=== PATIENT | female | born 1940 | race Hispanic/Latino ===

== ENCOUNTER 2017-01-01 00:52 | Inpatient (IN) | payer MEDICARE, MEDICAID ==
--- NOTE | 2017-01-01 00:58 | C.PDOC ---
History Of Present Illness 76 year old female presents to the ED with complaints of increased SOB and a nonproductive cough in the past 24 hours. Patient states she has continuous O2 at home and was given a nebulizer treatment with minimal improvement. She is speaking in complete sentences and denies chest pain, palpitations, fever, chills, or any other complaints at this time. Time Seen by Provider: 01/01/17 00:57 History Per: Patient History/Exam Limitations: no limitations Onset/Duration Of Symptoms: Hrs Current Symptoms Are (Timing): Still Present Initiating Event: Other Quality: Dull Exacerbating Factor(s): Coughing Current Respiratory Medications: See Home Med List, Albuterol Severity: Severe Pain Scale Rating Of: 7 Associated Symptoms: denies: Fever, Chills, Chest Pain, Productive Cough Reports Recently: Seen In ED, Treated By A Physician Recent travel outside of the [place]: No Additional History Per: Patient Past Medical History Reviewed: Historical Data, Nursing Documentation, Vital Signs Vital Signs: Last Vital Signs Temp 98.8 F 01/01/17 02:20 Pulse 96 H 01/01/17 02:32 Resp 27 H 01/01/17 02:32 BP 143/50 L 01/01/17 02:32 Pulse Ox 95 01/01/17 02:32 - Medical History PMH: Anxiety, Arthritis, COPD (EMPHYSEMA, O2 DEPENDENT), Emphysema, HTN, Hypercholesterolemia Surgical History: Cholecystectomy - [facility] Procedures ASSISTANCE WITH RESPIRATORY VENTILATION, <24 HRS, CPAP (08/14/15) FLUOROSCOPY OF LEFT HEART USING LOW OSMOLAR CONTRAST (12/17/15) FLUOROSCOPY OF MULT COR ART USING L OSM CONTRAST (12/17/15) MEASURE OF CARDIAC SAMPL & PRESSURE, L HEART, PERC APPROACH (12/17/15) Family History: States: Unknown Family Hx - Social History Hx Tobacco Use: No (Quit 3 years ago) Hx Alcohol Use: No Hx Substance Use: No - Immunization History Hx Tetanus Toxoid Vaccination: No Hx Influenza Vaccination: No Hx Pneumococcal Vaccination: No Review Of Systems Constitutional: Negative for: Fever, Chills, Weakness ENT: Negative for: Throat Pain Cardiovascular: Negative for: Chest Pain, Palpitations Respiratory: Positive for: Cough, Shortness of Breath. Negative for: Sputum Gastrointestinal: Negative for: Vomiting, Abdominal Pain Genitourinary: Negative for: Dysuria Musculoskeletal: Negative for: Neck Pain, Back Pain Skin: Negative for: Rash, Lesions, Jaundice Neurological: Negative for: Weakness, Numbness Psych: Negative for: Anxiety Physical Exam - Physical Exam Appears: In Acute Distress Skin: Warm, Dry Head: Atraumatic Eye(s): bilateral: Normal Inspection Oral Mucosa: Moist Neck: Supple Chest: Symmetrical, No Deformity Cardiovascular: Rhythm Regular Respiratory: No Accessory Muscle Use, No Rales, Rhonchi (+Scattered rhonchi), Wheezing (+Wheezing at the bases) Gastrointestinal/Abdominal: Soft, No Tenderness, No Distention, No Guarding, No Rebound Back: Normal Inspection Extremity: Normal ROM Extremity: Bilateral: Atraumatic, Normal Color And Temperature Neurological/Psych: Oriented x3, Normal Speech, Normal Cognition Gait: Unable To Assess ED Course And Treatment - Laboratory Results Result Diagrams: 01/01/17 01:27 01/01/17 01:27 ECG: Interpreted By Me, Viewed By Me ECG Rhythm: Sinus Rhythm, Nonspecific Changes (inf ischemic changes , uncganged from 12/17/15) O2 Sat by Pulse Oximetry: 94 Pulse Ox Interpretation: Normal - Radiology CXR: Interpreted by Me, Viewed By Me CXR Interpretation: Yes: COPD, Other (unchanged from 12/20/15). No: Infiltrates , Fracture, Pnemothorax Progress Note: CXR, EKG, Blood work, and Urinalysis ordered and reviewed. Critical Care Time - Critical Care Note Total Time (in mins): 30 Documented critical care: time excludes all time spent performing seperately billable procedures. Disposition Discussed With : Fernando Holly Comment: accepted the pt on his service and took over the care at 3 am Doctor Will See Patient In The: ED Counseled Patient/Family Regarding: Studies Performed, Diagnosis - Disposition Disposition: HOSPITALIZED Disposition Time: 00:58 Condition: FAIR - POA Present On Arrival: Poor Glycemic Control - Clinical Impression Clinical Impression: Chr obstructive pulmonary disease w/ acute lower respiratory infxn, Dyspnea, COPD exacerbation - Scribe Statement The provider has reviewed the documentation as recorded by the Scribe Kacie Manuel. Provider Attestation: All medical record entries made by the Scribe were at my direction and personally dictated by me. I have reviewed the chart and agree that the record accurately reflects my personal performance of the history, physical exam, medical decision making, and the department course for this patient. I have also personally directed, reviewed, and agree with the discharge instructions and disposition. Decision To Admit - Pt Status Changed To: Hospital Disposition Of: Inpatient - Admit Certification Admit to Inpatient:: After my assessment, the patient will require hospitalization for at least two midnights. This is because of the severity of symptoms shown, intensity of services needed, and/or the medical risk in this patient being treated as an outpatient. - InPatient: Physician Admission Certification: I certify that this patient requires 2 or more midnights of care for the following reason:: After my assessment, the patient will require hospitalization for at least two midnights. This is because of the severity of symptoms shown, intensity of services needed, and/or the medical risk in this patient being treated as an outpatient. - . Bed Request Type: Regular Admitting Physician: Fernando Holly Patient Diagnosis: Chr obstructive pulmonary disease w/ acute lower respiratory infxn, Dyspnea, COPD exacerbation
[2017-01-01] MEDS: Albuterol-Ipratrop 3 mg / 0.5 (3 ml) UD IH SCH ×3 (01:15→01:43)
[2017-01-01 01:29] LABS: BASO % 0.2 % (0.0-2.0); EOS # 0.2 K/uL (0.0-0.7); EOS % 0.7 % (0.0-4.0); HEMATOCRIT 31.8 % (34.0-47.0); LYMPH # 2.6 K/uL (1.0-4.3); LYMPH % 11.3 % (20.0-40.0); MEAN CELL VOLUME 85.7 fL (81.0-99.0); MEAN CORPUSCULAR HEMOGLOBIN 27.5 pg (27.0-31.0); MEAN CORPUSCULAR HGB CONC 32.1 g/dL (33.0-37.0); MEAN PLATELET VOLUME 9.3 fL (7.2-11.7); MONO % 8.8 % (0.0-10.0); NRBC % 0.1 % (0.0-2.0); RED CELL DISTRIBUTION WIDTH 14.2 % (11.5-14.5); WHITE BLOOD COUNT 22.6 K/uL (4.8-10.8)
[2017-01-01] MEDS ORDERED: Albuterol-Ipratrop 3 mg / 0.5 (3 ml) UD ONE (01:29)
[2017-01-01 01:44] LABS: ALB/GLOB RATIO 1.4 (1.0-2.1); ALKALINE PHOSPHATASE 98 U/L (38-126); ALT/SGPT 16 U/L (9-52); AST/SGOT 22 U/L (14-36); BILIRUBIN,TOTAL 0.6 mg/dL (0.2-1.3); BLOOD UREA NITROGEN 18 mg/dL (7-17); CALCIUM 9.5 mg/dl (8.6-10.4); CARBON DIOXIDE 31 mmol/L (22-30); CHLORIDE 91 mmol/L (98-107); GFR AFRICAN-AMERICAN > 60; GLUCOSE,RANDOM 177 mg/dL (65-105); MAGNESIUM 1.7 mg/dL (1.6-2.3); POTASSIUM 3.9 mmol/L (3.6-5.2); SODIUM 137 mmol/L (132-148); TOTAL PROTEIN 7.5 g/dL (6.3-8.3)
--- NOTE | 2017-01-01 04:26 | CP.PCM.HP ---
Addendum entered and electronically signed by Jennifer Gomes DO 01/01/17 06: 26: (8) Anemia Assessment and Plan: Patient with Hgb 10.2 on admission f/u Iron studies f/u CBC repeat today Patient with EGD and colonoscopy done last year for anemia. Obtain results from PMD. Status: Acute Original Note: <Jennifer Gomes - Last Filed: 01/01/17 06:21> History of Present Illness - History of Present Illness History of Present Illness: CC: "shortness of breath" 76 year old female with PMHx of COPD on O2 at home, CAD, DM, HTN, arthritis, anxiety presents with 1-2 day history of worsening dyspnea. She uses 3-4L of O2 via NC around the clock. Patient also reports new onset cough that is dry and non productive. She recently re-started home neb treatments and thinks this is what started all her issues. She denies fevers, chills. She has not chest pain now, but admits she gets chest pain intermittently for a "long time". Chest pain is intermittent, left sides, "burning" and lasts only a for a few seconds at a time. She attributes the chest pain to food intake, although she also notices when she is "upset". She was seen by a aix architect during admission to [facility] ([facility] last year where she had elevated troponins and had cath done. Patient reports she was told "everything was okay", however as per cath report, patient has double vessel disease and was treated conservatively. Patient admits she never followed up with cardio as outpatient. She denies fevers, chills, nausea, vomiting, diarrhea, constipation, dysuria, abdominal pain, numbness, tingling, myalgias. Admits to inability to lay flat. Denies sick contacts, recent hospital stay or recent travel. Patient was made to come in for evaluation after she placed call to her PMD. PMHx: COPD on O2 at home, CAD, HTN, arthritis, anxiety, DM. Medications: she does not remember them. Allergies: NKDA Social Hx: quit smoking 5 years ago after being heavy smoker for 40-50 years. She reports alcohol abuse, but quit many years ago. Denies drug use. Lives at home with daughter who is her stucco laborer. Family Hx: denies family history of any illness. PMD: Dr. Young Present on Admission - Present on Admission Any Indicators Present on Admission: No Review of Systems - Constitutional Constitutional: absent: Chills, Fatigue, Fever - EENT Eyes: absent: Blurred Vision, Change in Vision Ears: absent: Dizziness - Cardiovascular Cardiovascular: Chest Pain with Activity. absent: Chest Pain at Rest - Respiratory Respiratory: Cough, Dyspnea, Wheezing. absent: Chest Congestion - Gastrointestinal Gastrointestinal: Dyspepsia. absent: Abdominal Pain, Constipation, Diarrhea, Nausea, Vomiting - Genitourinary Genitourinary: absent: Difficulty Urinating, Dysuria - Musculoskeletal Musculoskeletal: absent: Back Pain, Myalgias, Numbness, Tingling - Integumentary Integumentary: absent: Rash, Wounds - Neurological Neurological: Headaches. absent: Dizziness, Numbness, Syncope, Tingling, Weakness - Psychiatric Psychiatric: Anxiety. absent: Depression - Endocrine Endocrine: absent: Fatigue, Palpitations Past Patient History - Infectious Disease Hx of Infectious Diseases: None - Past Medical History & Family History Past Medical History?: Yes - Past Social History Smoking Status: Former Smoker - CARDIAC Hx Hypercholesterolemia: Yes Hx Hypertension: Yes - PULMONARY Hx Chronic Obstructive Pulmonary Disease (COPD): Yes (EMPHYSEMA, O2 DEPENDENT) Hx Emphysema: Yes - NEUROLOGICAL Hx Neurological Disorder: No - HEENT Hx HEENT Problems: No - RENAL Hx Chronic Kidney Disease: No - ENDOCRINE/METABOLIC Hx Diabetes Mellitus Type 2: No - HEMATOLOGICAL/ONCOLOGICAL Hx Blood Disorders: No - INTEGUMENTARY Hx Dermatological Problems: No - MUSCULOSKELETAL/RHEUMATOLOGICAL Hx Arthritis: Yes - GASTROINTESTINAL Hx Gastrointestinal Disorders: No - GENITOURINARY/GYNECOLOGICAL Hx Genitourinary Disorders: No - PSYCHIATRIC Hx Anxiety: Yes Hx Substance Use: No - SURGICAL HISTORY Hx Cholecystectomy: Yes - ANESTHESIA Hx Anesthesia: Yes Hx Anesthesia Reactions: No Hx Malignant Hyperthermia: No Meds Allergies/Adverse Reactions: Allergies Allergy/AdvReac Type Severity Reaction Status Date / Time No Known Allergies Allergy Verified 01/01/17 01:01 Physical Exam - Constitutional Appears: No Acute Distress - Head Exam Head Exam: NORMAL INSPECTION, NORMOCEPHALIC - Eye Exam Eye Exam: EOMI, Normal appearance - ENT Exam ENT Exam: Mucous Membranes Moist - Neck Exam Neck exam: Positive for: Full Rom, Normal Inspection - Respiratory Exam Respiratory Exam: Decreased Breath Sounds, Wheezes (mininal). absent: Rales, Rhonchi - Cardiovascular Exam Cardiovascular Exam: REGULAR RHYTHM, +S1, +S2. absent: Systolic Murmur - GI/Abdominal Exam GI & Abdominal Exam: Normal Bowel Sounds, Soft. absent: Distended, Tenderness - Extremities Exam Extremities exam: Positive for: full ROM, normal inspection. Negative for: pedal edema - Back Exam Back exam: NORMAL INSPECTION - Neurological Exam Neurological exam: Alert, Oriented x3 - Psychiatric Exam Psychiatric exam: Normal Affect, Normal Mood - Skin Skin Exam: Dry, Normal Color, Pallor, Warm Results - Vital Signs Recent Vital Signs: Last Vital Signs Temp 98.8 F 01/01/17 04:06 Pulse 98 H 01/01/17 04:06 Resp 28 H 01/01/17 04:06 BP 140/55 L 01/01/17 04:06 Pulse Ox 96 01/01/17 04:06 - Labs Result Diagrams: 01/01/17 01:27 01/01/17 01:27 Assessment & Plan (1) COPD exacerbation Assessment and Plan: Patient with improved SOB after Solumedrol 125 mg IVP dose given in the ED and Duoneb treatments. Patient on 3-4L of O2 at home continuously. Duoneb Q6H RICHARD Pulmicort respules 0.5 Q12H Solumedrol daily O2 3L NC Status: Chronic (2) Cough Assessment and Plan: f/u official read of CXR Doxy IVPB Q12H Status: Acute (3) Leukocytosis Assessment and Plan: WBC 22.6 f/u CXR f/u blood cultures f/u UA and C&S Status: Acute (4) CAD (coronary artery disease) Assessment and Plan: Patient with hx of double vessel disease as per cath 2016 with 90% stenosis of RCA and LAD. Troponin negative on admission EKG showed NSR 100 bpm, with unspecific ST changes. f/u CRISTIAN Q6H X2 f/u EKG Q6H X2 Plavix 75 mg PO daily Aspirin 81 mg PO daily Norvasc 10 mg PO daily ECHO with normal EF in 2016. f/u repeat ECHO Status: Acute (5) Diabetes mellitus Assessment and Plan: ISS Restart home med Januvia PO. ACCU CHECKS ACHS f/u Hgb A1C Status: Chronic (6) HTN (hypertension) Assessment and Plan: Norvasc 10 mg PO daily Lasix 20 mg PO daily Status: Chronic Priority: Medium (7) Prophylactic measure Assessment and Plan: Pepcid 20 mg PO BID Heparin SC Q8H SCDs Status: Acute <Fernando Holly - Last Filed: 01/11/17 22:18> Results - Vital Signs Recent Vital Signs: Last Vital Signs Temp 98 F 01/03/17 15:56 Pulse 91 H 01/03/17 15:56 Resp 20 01/03/17 15:56 BP 151/72 H 01/03/17 15:56 Pulse Ox 97 01/03/17 15:56 - Labs Result Diagrams: 01/02/17 07:12 01/02/17 07:12 Attending/Attestation - Attestation I have personally seen and examined this patient.: Yes I have fully participated in the care of the patient.: Yes I have reviewed all pertinent clinical information: Yes
[2017-01-01 06:55] LABS: BASO # 0.1 K/uL (0.0-0.2); BASO % 0.2 % (0.0-2.0); HEMATOCRIT 33.8 % (34.0-47.0); LYMPH # 1.4 K/uL (1.0-4.3); LYMPH % 5.7 % (20.0-40.0); MEAN CELL VOLUME 85.7 fL (81.0-99.0); MEAN CORPUSCULAR HEMOGLOBIN 26.8 pg (27.0-31.0); MEAN CORPUSCULAR HGB CONC 31.3 g/dL (33.0-37.0); MEAN PLATELET VOLUME 9.5 fL (7.2-11.7); MONO # 0.4 K/uL (0.0-0.8); MONO % 1.6 % (0.0-10.0); PLATELET COUNT 325 K/uL (130-400); RED CELL DISTRIBUTION WIDTH 14.7 % (11.5-14.5); WHITE BLOOD COUNT 25.3 K/uL (4.8-10.8)
[2017-01-01 07:43] LABS: CHLORIDE 88 mmol/L (98-107)
[2017-01-01 07:44] LABS: POTASSIUM 3.7 mmol/L (3.6-5.2); SODIUM 136 mmol/L (132-148)
[2017-01-01 07:46] LABS: ALB/GLOB RATIO 1.4 (1.0-2.1); ALKALINE PHOSPHATASE 96 U/L (38-126); AST/SGOT 34 U/L (14-36); BILIRUBIN,TOTAL 0.3 mg/dL (0.2-1.3); BLOOD UREA NITROGEN 19 mg/dL (7-17); CARBON DIOXIDE 26 mmol/L (22-30); GFR AFRICAN-AMERICAN > 60; TOTAL PROTEIN 8.2 g/dL (6.3-8.3)
[2017-01-01 07:47] LABS: ALT/SGPT 16 U/L (9-52); CALCIUM 9.7 mg/dl (8.6-10.4); GLUCOSE,RANDOM 228 mg/dL (65-105); MAGNESIUM 1.8 mg/dL (1.6-2.3); PHOSPHOROUS 3.6 mg/dL (2.5-4.5)
[2017-01-01 08:18] LABS: RBC URINE 9 /hpf (0-3); URINE BILIRUBIN NEGATIVE (NEGATIVE); URINE BLOOD 1+ (NEGATIVE); URINE COLOR Yellow (YELLOW); URINE GLUCOSE (UA) NORMAL (Normal); URINE KETONE NEGATIVE (NEGATIVE); URINE LEUKOCYTE ESTERASE NEG Leu/uL (Negative); URINE PROTEIN 2+ mg/dL (NEGATIVE); URINE UROBILINOGEN NORMAL mg/dL (0.2-1.0); WBC URINE 1 /hpf (0-5)
[2017-01-01 08:22] LABS: THYROID STIMULATING HORMONE 0.59 mIU/L (0.46-4.68)
[2017-01-01] MEDS: Albuterol-Ipratrop 3 mg / 0.5 (3 ml) UD INH SCH ×3 (08:30→19:15)
[2017-01-01] MEDS: Budesonide 0.5 mg/2 ml Inhal Susp UD INH SCH ×2 (08:30→19:15)
[2017-01-01 08:42] LABS: NEUTROPHIL 87 % (50-75); REACTIVE LYMPHOCYTES 1 % (0-0); TOTAL CELLS COUNTED 100
[2017-01-01] MEDS: (Novolin R) Insulin Human Regular 100 units/ml vial SC SCH ×4 (09:49→21:12)
[2017-01-01 10:39] LABS: IRON 30 ug/dL (37-170)
--- NOTE | 2017-01-01 11:56 | CP.PCM.CON ---
History of Present Illness - History of Present Illness History of Present Illness: Pt is a 76yo F with a history of COPD, CAD, HtN, DM, arthritis, and anxiety presents to the ED with increased SOB with associated non-productive cough for 24-48 hours prior to admission. Pt uses home O2 at 3-4L for 24hrs/day. The patient expresses a history of chest pain associated with any removal of O2 assistance. Pt also describes a concern about laying flat. Pt was seen and examined today breathing comfortably on NC. Pt complains of continued non-productive cough, congestion, palpations that feel like excitement , inability to breath laying down, some lack of balance, and dry mouth attributed by the pt to O2 use. Patient denies SOB, CP, sore throat, leg pain, lightheadedness, dizziness, nausea, vomiting, abdominal pain, changes in bowl habits including diarrhea and constipation. PMH: COPD, CAD, HtN, DM, arthritis, and anxiety PSH: cholecystectomy, positive troponins with cath Smoking: Quit 5 years ago, significant smoking hx prior Review of Systems - EENT Nose/Mouth/Throat: absent: Sore Throat - Cardiovascular Cardiovascular: absent: Chest Pain, Lightheadedness - Respiratory Respiratory: Cough, Dyspnea, Chest Congestion - Gastrointestinal Gastrointestinal: absent: Abdominal Pain, Change in Bowel Habits, Change in Stool Character, Diarrhea, Loose Stools, Nausea, Vomiting - Musculoskeletal Musculoskeletal: Abnormal Gait (feels off balance occationaly) - Neurological Neurological: absent: Dizziness Past Patient History - Infectious Disease Hx of Infectious Diseases: None - Past Medical History & Family History Past Medical History?: Yes - Past Social History Smoking Status: Former Smoker - CARDIAC Hx Hypercholesterolemia: Yes Hx Hypertension: Yes - PULMONARY Hx Chronic Obstructive Pulmonary Disease (COPD): Yes (EMPHYSEMA, O2 DEPENDENT) Hx Emphysema: Yes - NEUROLOGICAL Hx Neurological Disorder: No - HEENT Hx HEENT Problems: No - RENAL Hx Chronic Kidney Disease: No - ENDOCRINE/METABOLIC Hx Diabetes Mellitus Type 2: No - HEMATOLOGICAL/ONCOLOGICAL Hx Blood Disorders: No - INTEGUMENTARY Hx Dermatological Problems: No - MUSCULOSKELETAL/RHEUMATOLOGICAL Hx Arthritis: Yes - GASTROINTESTINAL Hx Gastrointestinal Disorders: No - GENITOURINARY/GYNECOLOGICAL Hx Genitourinary Disorders: No - PSYCHIATRIC Hx Anxiety: Yes Hx Substance Use: No - SURGICAL HISTORY Hx Cholecystectomy: Yes - ANESTHESIA Hx Anesthesia: Yes Hx Anesthesia Reactions: No Hx Malignant Hyperthermia: No Meds Allergies/Adverse Reactions: Allergies Allergy/AdvReac Type Severity Reaction Status Date / Time No Known Allergies Allergy Verified 01/01/17 01:01 - Medications Medications: Current Medications Albuterol/Ipratropium (Duoneb 3 Mg/0.5 Mg (3 Ml) Ud) 3 ml INH RQ6 [facility] Last Admin: 01/01/17 08:30 Dose: 3 ml Alprazolam (Xanax) 1 mg PO PRN PRN PRN Reason: Anxiety Last Admin: 01/01/17 09:42 Dose: 1 mg Amlodipine Besylate (Norvasc) 10 mg PO DAILY [facility] Last Admin: 01/01/17 09:46 Dose: 10 mg Aspirin (Ecotrin) 81 mg PO DAILY [facility] Last Admin: 01/01/17 09:43 Dose: 81 mg Budesonide (Pulmicort Respules) 0.5 mg INH RQ12 [facility] Last Admin: 01/01/17 08:30 Dose: 0.5 mg Clopidogrel Bisulfate (Plavix) 75 mg PO DAILY [facility] Last Admin: 01/01/17 09:42 Dose: 75 mg Famotidine (Pepcid) 20 mg PO BID [facility] Last Admin: 01/01/17 09:43 Dose: 20 mg Furosemide (Lasix) 20 mg PO DAILY [facility] Last Admin: 01/01/17 09:43 Dose: 20 mg Heparin Sodium (Porcine) (Heparin) 5,000 units SC Q8 [facility] Last Admin: 01/01/17 06:15 Dose: 5,000 units Moxifloxacin HCl (Avelox Iv 400mg/250ml Ns) 250 mls @ 167 mls/hr IVPB Q24H [facility] Insulin Human Regular (Novolin R) 0 unit SC ACHS [facility] PRN Reason: Protocol Last Admin: 01/01/17 09:49 Dose: 4 unit Sitagliptin Phosphate (Januvia) 50 mg PO BID [facility] Last Admin: 01/01/17 09:43 Dose: 50 mg Physical Exam - Constitutional Appears: Well, No Acute Distress - Head Exam Head Exam: ATRAUMATIC, NORMOCEPHALIC - Eye Exam Eye Exam: EOMI, PERRL - ENT Exam ENT Exam: Mucous Membranes Moist, Normal Exam - Respiratory Exam Respiratory Exam: Decreased Breath Sounds, NORMAL BREATHING PATTERN - Cardiovascular Exam Cardiovascular Exam: +S1, +S2. absent: JVD, Systolic Murmur - GI/Abdominal Exam GI & Abdominal Exam: Diminished Bowel Sounds, Soft. absent: Rebound, Tenderness Additional comments: surgical scar - Extremities Exam Extremities exam: Positive for: normal inspection, pedal pulses present. Negative for: pedal edema, tenderness - Neurological Exam Neurological exam: Alert, Oriented x3 - Psychiatric Exam Psychiatric exam: Normal Affect, Normal Mood - Skin Skin Exam: Dry, Intact, Normal Color, Warm Results - Vital Signs Recent Vital Signs: Last Vital Signs Temp 98.4 F 01/01/17 08:00 Pulse 100 H 01/01/17 08:39 Resp 20 01/01/17 08:00 BP 158/75 H 01/01/17 09:43 Pulse Ox 97 01/01/17 08:00 - Labs Result Diagrams: 01/02/17 07:12 01/02/17 07:12 Labs: Laboratory Results - last 24 hr 01/01/17 01/01/17 01/01/17 06:48 08:21 10:21 WBC 25.3 H RBC 3.95 Hgb 10.6 L Hct 33.8 L MCV 85.7 MCH 26.8 L MCHC 31.3 L RDW 14.7 H Plt Count 325 MPV 9.5 Neut % (Auto) 92.5 H Lymph % (Auto) 5.7 L [place] % (Auto) 1.6 Eos % (Auto) 0.0 Baso % (Auto) 0.2 Neut # 23.4 H Lymph # 1.4 [place] # 0.4 Eos # 0.0 Baso # 0.1 Neutrophils % (Manual) 87 H Band Neutrophils % 9 H Lymphocytes % (Manual) 3 L Reactive Lymphs % 1 H Monocytes % (Manual) TEST NOT PERFORMED Platelet Estimate Normal Ovalocytes Slight Sodium 136 Potassium 3.7 Chloride 88 L Carbon Dioxide 26 Anion Gap 26 H BUN 19 H Creatinine 0.7 Est GFR ( Amer) > 60 Est GFR (Non-Af Amer) > 60 POC Glucose (mg/dL) 228 H Random Glucose 228 H Hemoglobin A1c 6.1 Calcium 9.7 Phosphorus 3.6 Magnesium 1.8 Iron 30 L TIBC 397 % Saturation 8 L Transferrin Ferritin 27.7 Total Bilirubin 0.3 AST 34 ALT 16 Alkaline Phosphatase 96 Total Creatine Kinase 138 H CK-MB (Mass) 1.79 Troponin I, Quant 0.0170 Total Protein 8.2 Albumin 4.8 Globulin 3.4 Albumin/Globulin Ratio 1.4 Triglycerides 144 D Cholesterol 192 LDL Cholesterol Direct 97 HDL Cholesterol 60 TSH 3rd Generation 0.59 01/01/17 10:31 WBC RBC Hgb Hct MCV MCH MCHC RDW Plt Count MPV Neut % (Auto) Lymph % (Auto) [place] % (Auto) Eos % (Auto) Baso % (Auto) Neut # Lymph # [place] # Eos # Baso # Neutrophils % (Manual) Band Neutrophils % Lymphocytes % (Manual) Reactive Lymphs % Monocytes % (Manual) Platelet Estimate Ovalocytes Sodium Potassium Chloride Carbon Dioxide Anion Gap BUN Creatinine Est GFR ( Amer) Est GFR (Non-Af Amer) POC Glucose (mg/dL) Random Glucose Hemoglobin A1c Calcium Phosphorus Magnesium Iron TIBC % Saturation Transferrin 334.59 Ferritin Total Bilirubin AST ALT Alkaline Phosphatase Total Creatine Kinase CK-MB (Mass) Troponin I, Quant Total Protein Albumin Globulin Albumin/Globulin Ratio Triglycerides Cholesterol LDL Cholesterol Direct HDL Cholesterol TSH 3rd Generation Assessment & Plan (1) COPD exacerbation Assessment and Plan: CXR 01/01/17 mild bi-basilar atelectasis Chest CT ECHO 01/01/17 read pending; follow results Following ascending elevated WBC lab value Continue Duoneb, steroids, and antibiotics Continue to monitor for changes in SOB, fever, and vital signs Status: Chronic
--- NOTE | 2017-01-01 13:10 | RAD ---
HISTORY: SOB COMPARISON: Chest x-ray performed 12/20/15 TECHNIQUE: Chest, one view. FINDINGS: LUNGS: Mild bibasilar atelectasis. Please note that chest x-ray has limited sensitivity for the detection of pulmonary masses. PLEURA: No significant pleural effusion identified. No definite pneumothorax . CARDIOVASCULAR: Cardiomegaly. Dense atherosclerotic calcifications of the aorta. OSSEOUS STRUCTURES: Osseous demineralization. Scoliosis, convex to the right. VISUALIZED UPPER ABDOMEN: Unremarkable. OTHER FINDINGS: None. IMPRESSION: Mild bibasilar atelectasis.
[2017-01-01] MEDS: Moxifloxacin IV 400mg/250ml NS 250 ML IVPB SCH (13:51)
[2017-01-01] MEDS: MethylPREDNISolone 40 mg Vial IVP SCH ×3 (13:52→21:04)
--- NOTE | 2017-01-01 15:20 | CP.PCM.PN ---
<Maliha Armstrong - Last Filed: 01/01/17 15:59> Subjective - Date & Time of Evaluation Date of Evaluation: 01/01/17 Time of Evaluation: 08:30 - Subjective Subjective: PGY [address] Newman: Patient was seen and examined today at bedside. She is breathing comfortably on NC 2L and in no respiratory distress. She complains of continued non- productive cough, congestion, and reported white phelgm production yesterday. She reports being more short of breath than usual for the past 3 days. She uses 3-4 L of oxygen at home. Her entry table operator is Dr. Chavez. She denied chest pain but states that she frequently gets anxiety. She reported she was getting a choking sensation when she was lying down for the past day but states that this has resolved. Patient denies CP, sore throat, leg pain, lightheadedness, dizziness, nausea, vomiting, abdominal pain, changes in bowl habits including diarrhea and constipation. Her daughters names is Priti interiano , cell . Objective - Vital Signs/Intake and Output Vital Signs (last 24 hours): Temp Pulse Resp BP Pulse Ox 98.4 F 100 H 20 158/75 H 97 01/01/17 08:00 01/01/17 08:39 01/01/17 08:00 01/01/17 09:43 01/01/17 08:00 - Medications Medications: Current Medications Albuterol/Ipratropium (Duoneb 3 Mg/0.5 Mg (3 Ml) Ud) 3 ml INH RQ6 [facility] Last Admin: 01/01/17 13:34 Dose: 3 ml Alprazolam (Xanax) 1 mg PO PRN PRN PRN Reason: Anxiety Last Admin: 01/01/17 09:42 Dose: 1 mg Amlodipine Besylate (Norvasc) 10 mg PO DAILY [facility] Last Admin: 01/01/17 09:46 Dose: 10 mg Aspirin (Ecotrin) 81 mg PO DAILY [facility] Last Admin: 01/01/17 09:43 Dose: 81 mg Budesonide (Pulmicort Respules) 0.5 mg INH RQ12 [facility] Last Admin: 01/01/17 08:30 Dose: 0.5 mg Clopidogrel Bisulfate (Plavix) 75 mg PO DAILY [facility] Last Admin: 01/01/17 09:42 Dose: 75 mg Famotidine (Pepcid) 20 mg PO BID [facility] Last Admin: 01/01/17 09:43 Dose: 20 mg Furosemide (Lasix) 20 mg PO DAILY [facility] Last Admin: 01/01/17 09:43 Dose: 20 mg Heparin Sodium (Porcine) (Heparin) 5,000 units SC Q8 [facility] Last Admin: 01/01/17 13:54 Dose: 5,000 units Moxifloxacin HCl (Avelox Iv 400mg/250ml Ns) 250 mls @ 167 mls/hr IVPB Q24H [facility] Last Admin: 01/01/17 13:51 Dose: 167 mls/hr Insulin Human Regular (Novolin R) 0 unit SC ACHS [facility] PRN Reason: Protocol Last Admin: 01/01/17 11:30 Dose: 4 unit Methylprednisolone (Solu-Medrol) 40 mg IVP Q8 [facility] Last Admin: 01/01/17 14:01 Dose: Not Given Saccharomyces Boulardii (Florastor) 250 mg PO BID [facility] Sitagliptin Phosphate (Januvia) 50 mg PO BID [facility] Last Admin: 01/01/17 09:43 Dose: 50 mg - Labs Labs: 01/01/17 06:48 01/01/17 06:48 PT 11.5 SECONDS (9.7-12.2) 01/01/17 01:27 INR 1.0 01/01/17 01:27 APTT 33 SECONDS (21-34) 01/01/17 01:27 - Constitutional Appears: Non-toxic, No Acute Distress - Head Exam Head Exam: ATRAUMATIC, NORMAL INSPECTION - Eye Exam Eye Exam: EOMI, Normal appearance, PERRL Pupil Exam: NORMAL ACCOMODATION - ENT Exam ENT Exam: Mucous Membranes Moist - Neck Exam Neck Exam: Full ROM - Respiratory Exam Respiratory Exam: Decreased Breath Sounds, NORMAL BREATHING PATTERN. absent: Accessory Muscle Use, Wheezes, Respiratory Distress Additional comments: on NC 2 L, poor air movement. no wheeze - Cardiovascular Exam Cardiovascular Exam: REGULAR RHYTHM, +S1, +S2 - GI/Abdominal Exam GI & Abdominal Exam: Soft, Normal Bowel Sounds. absent: Distended, Firm, Guarding, Tenderness - Extremities Exam Extremities Exam: Normal Inspection. absent: Calf Tenderness, Pedal Edema - Back Exam Back Exam: NORMAL INSPECTION. absent: CVA tenderness (L), CVA tenderness (R), paraspinal tenderness Additional comments: scolosis - Neurological Exam Neurological Exam: Alert, Awake, Oriented x3 - Psychiatric Exam Psychiatric exam: Normal Affect, Normal Mood - Skin Skin Exam: Dry, Intact, Normal Color, Warm. absent: Cyanosis Assessment and Plan - Assessment and Plan (Free Text) Assessment: COPD exacerbation Assessment and Plan: Improving, decreased breath sounds Patient with improved SOB after Solumedrol 125 mg IVP dose given in the ED and Duoneb treatments. Patient on 3-4L of O2 at home continuously. Duoneb Q6H [facility] Pulmicort respules 0.5 Q12H Solumedrol 40 mg IVP Q8 hours [facility] O2 [address]L NC Dr[address] Chavez consulted, help appreciated Status: Chronic Leukocytosis Assessment and Plan: WBC 25.6 with left shift, no bands unsure if was on previous steroids, will place call to her primary cars physician CXR 01/01/17 mild bi-basilar atelectasis, cardiomegaly, scolosis, calcifications in the aorta UA - 2+ protein, 1+ blood, 9 RBC, no sign of infections f/u blood cultures f/u Urine C&S f/u am labs Moxifloxacin 400mg IVPB daily (started 01/01) Florastor Status: Acute Pneumonia (rule out) Assessment and Plan: WBC 25.6 with left shift, no bands CXR 01/01/17 mild bi-basilar atelectasis, cardiomegaly, scolosis, calcifications in the aorta f/u CT chest w/o contrast can be given a dose of Ativan 1mg prior to CT f/u am labs, legionella, strep, mycoplasma, influenza Moxifloxacin 400mg IVPB daily (started 01/01) Florastor Status: Acute CAD (coronary artery disease) Assessment and Plan: Patient with hx of double vessel disease as per cath 2016 with 90% stenosis of RCA and LAD. Troponin negative on admission EKG showed NSR 100 bpm, with unspecific ST changes. f/u CRISTIAN negative x 3, with EKGs no change from previous Place on monitor technician Plavix 75 mg PO daily Aspirin 81 mg PO daily Norvasc 10 mg PO daily ECHO with normal EF in 2016. f/u repeat ECHO Tchol 192, Trig 144, HDL 60, LDL 97 Status: Acute Diabetes mellitus Assessment and Plan: ISS Restart home Januvia 50mg PO BID ACCU CHECKS ACHS Hgb A1C - 6.1 Status: Chronic HTN (hypertension) Assessment and Plan: Norvasc 10 mg PO daily Lasix 20 mg PO daily Monitor Status: Chronic Priority: Medium Anemia Assessment and Plan: Patient with Hgb 10.2 on admission and 10.6 today, stable, no signs of bleeding Patient with EGD and colonoscopy done last year for anemia. Obtain results from PMD. MCV - 85.7 Fe - 30 TIBC - 397 % Sat - 8 Ferritin - 27.7 f/u retic count Status: Acute Anxiety Assessment and Plan: Patient take Xanax 1mg TID Status: Acute Prophylactic measure Assessment and Plan: Pepcid 20 mg PO BID Heparin SC Q8H [facility] Heart Healthy diet PT for deconditioning Status: Acute Call placed to her primary care Dr. Monica Young. . Message was left but office is closed today. Will call back tomorrow. <Cally Newman V - Last Filed: 01/02/17 03:23> Objective - Vital Signs/Intake and Output Vital Signs (last 24 hours): Temp Pulse Resp BP Pulse Ox 97.7 F 79 20 127/62 97 01/01/17 23:00 01/02/17 02:16 01/01/17 23:00 01/01/17 23:00 01/01/17 23:00 - Medications Medications: Current Medications Albuterol/Ipratropium (Duoneb 3 Mg/0.5 Mg (3 Ml) Ud) 3 ml INH RQ6 [facility] Last Admin: 01/02/17 01:00 Dose: 3 ml Alprazolam (Xanax) 1 mg PO TID PRN PRN Reason: Anxiety Amlodipine Besylate (Norvasc) 10 mg PO DAILY [facility] Last Admin: 01/01/17 09:46 Dose: 10 mg Aspirin (Ecotrin) 81 mg PO DAILY [facility] Last Admin: 01/01/17 09:43 Dose: 81 mg Budesonide (Pulmicort Respules) 0.5 mg INH RQ12 [facility] Last Admin: 01/01/17 19:15 Dose: 0.5 mg Clopidogrel Bisulfate (Plavix) 75 mg PO DAILY [facility] Last Admin: 01/01/17 09:42 Dose: 75 mg Famotidine (Pepcid) 20 mg PO BID [facility] Last Admin: 01/01/17 17:19 Dose: 20 mg Furosemide (Lasix) 20 mg PO DAILY [facility] Last Admin: 01/01/17 09:43 Dose: 20 mg Heparin Sodium (Porcine) (Heparin) 5,000 units SC Q8 [facility] Last Admin: 01/01/17 21:04 Dose: 5,000 units Moxifloxacin HCl (Avelox Iv 400mg/250ml Ns) 250 mls @ 167 mls/hr IVPB Q24H [facility] Last Admin: 01/01/17 13:51 Dose: 167 mls/hr Insulin Human Regular (Novolin R) 0 unit SC ACHS [facility] PRN Reason: Protocol Last Admin: 01/01/17 21:12 Dose: Not Given Methylprednisolone (Solu-Medrol) 40 mg IVP Q8 [facility] Last Admin: 01/01/17 21:04 Dose: 40 mg Pneumococcal Polyvalent Vaccine (Pneumovax 23 Vaccine) 0.5 ml IM .ONCE ONE Stop: 01/03/17 10:01 Saccharomyces Boulardii (Florastor) 250 mg PO BID [facility] Last Admin: 01/01/17 17:20 Dose: 250 mg Sitagliptin Phosphate (Januvia) 50 mg PO BID [facility] Last Admin: 01/01/17 17:19 Dose: 50 mg - Labs Labs: 01/01/17 06:48 01/01/17 06:48 PT 11.5 SECONDS (9.7-12.2) 01/01/17 01:27 INR 1.0 01/01/17 01:27 APTT 33 SECONDS (21-34) 01/01/17 01:27 Attending/Attestation - Attestation I have personally seen and examined this patient.: Yes I have fully participated in the care of the patient.: Yes I have reviewed all pertinent clinical information, including history, physical exam and plan: Yes Notes (Text): This is late computer entry for 01/01/17. Patient seen, examined and case discussed with day-time resident. Patient seen previously on 3rd floor. Transferred to telemetry for monitoring given plausible cardiology etiology to patient's shortness of breathe. Patient reports she has feeling choking sensation for the past three days which she reports is resolved now. patient reports she sees lung doctor, and confirmed with Dr. Chavez that she is his private patient for severe COPD. Per Dr. Chavez, start patient on IV steroids. Given patient's leukocytosis, will try to follow-up with patient was on steroids prior to admission; Procalcitoin was low. Patient ordered for pneumonia serologies and CT Chest w/o contrast for better image regarding patient's lungs. Patient started on IV avelox to cover to for community acquire pneumonia. Follow-up echocardiogram and ROMIsX2. Assessment/Plan 1) COPD exacerbation Assessment and Plan: Improving, decreased breath sounds Patient with improved SOB after Solumedrol 125 mg IVP dose given in the ED and Duoneb treatments. Patient on 3-4L of O2 at home continuously. Duoneb Q6H [facility] Pulmicort respules 0.5 Q12H Solumedrol 40 mg IVP Q8 hours [facility] O2 3L NC Dr. Chavez (pulmonary) consulted, help appreciated Chest xray (12/31/16): mild bibasilar atelectasis Ordered for CT Chest Status: Chronic Leukocytosis Assessment and Plan: WBC 25.6 with left shift, no bands unsure if was on previous steroids, will place call to her primary cars physician CXR 01/01/17 mild bi-basilar atelectasis, cardiomegaly, scolosis, calcifications in the aorta UA - 2+ protein, 1+ blood, 9 RBC, no sign of infections f/u blood cultures f/u Urine C&S f/u am labs Moxifloxacin 400mg IVPB daily (started 01/01/17) to cover for community acquired pneumonia Procalcitoni: low Florastor 250 mg PO bid Status: Acute Pneumonia (rule out) Assessment and Plan: WBC 25.6 with left shift, no bands CXR 01/01/17 mild bi-basilar atelectasis, cardiomegaly, scolosis, calcifications in the aorta f/u CT chest w/o contrast can be given a dose of Ativan 1mg prior to CT f/u am labs, legionella, strep, mycoplasma, influenza Moxifloxacin 400mg IVPB daily (started 01/01) Florastor 250mg PO bid Pneumonia severity index: 68 points; based on clinical judgement for either outpatient or inpatient management Status: Acute CAD (coronary artery disease) Assessment and Plan: Patient with hx of double vessel disease as per cath 2016 with 90% stenosis of RCA and LAD. Troponin negative on admission EKG showed NSR 100 bpm, with unspecific ST changes. f/u CRISTIAN negative x 3, with EKGs no change from previous transferred to telemetry floor Plavix 75 mg PO daily Aspirin 81 mg PO daily Norvasc 10 mg PO daily ECHO with normal EF in 2016. f/u repeat ECHO Tchol 192, Trig 144, HDL 60, LDL 97 Status: Acute Diabetes mellitus Assessment and Plan: ISS Restart home Januvia 50mg PO BID ACCU CHECKS ACHS Hgb A1C - 6.1 controlled Status: Chronic HTN (hypertension) Assessment and Plan: Norvasc 10 mg PO daily Lasix 20 mg PO daily Monitor Status: Chronic Priority: Medium Anemia Assessment and Plan: Patient with Hgb 10.2 on admission and 10.6 today, stable, no signs of bleeding Patient with EGD and colonoscopy done last year for anemia. Obtain results from PMD. MCV - 85.7 Fe - 30 TIBC - 397 % Sat - 8 Ferritin - 27.7 f/u retic count Status: Acute Anxiety Assessment and Plan: Patient take Xanax 1mg TID as outpatient Status: Acute Prophylactic measure Assessment and Plan: Pepcid 20 mg PO BID Heparin SC Q8H [facility] Heart Healthy diet PT for deconditioning Status: Acute Resident placed to her primary care Dr. Monica Young. . Message was left but office is closed today.
--- NOTE | 2017-01-01 15:27 | CARD ---
APPROVED REPORT EXAM: Two-dimensional and M-mode echocardiogram with Doppler and color Doppler. Other Information Quality : GoodRhythm : INDICATION Dyspnea CAD Chest Pain Congestive Heart Failure COPD RISK FACTORS Hypertension Hyperlipidemia Diabetes M-Mode DIMENSIONS RVDd1.35 (2.1-3.2cm)Left Atrium (MM)3.98 (2.5-4.0cm) IVSd1.08 (0.7-1.1cm)Aortic Root2.84 (2.2-3.7cm) LVDd5.76 (4.0-5.6cm)Aortic Cusp Exc.1.40 (1.5-2.0cm) PWd1.21 (0.7-1.1cm)FS (%) 30 % LVDs4.06 (2.0-3.8cm)LVEF (%)56 (>50%) Mitral Valve MV E Lbnnpjjf976.7cm/sMV A Dmfbjkzl137.6cm/sE/A ratio0.7 TDI E/Lateral E'0.0E/Medial E'0.0 Tricuspid Valve TR Peak [id number]/sTR Peak [id number] LEFT VENTRICLE The left ventricle is normal size. There is borderline concentric left ventricular hypertrophy. The left ventricular function is normal. The left ventricular ejection fraction is within the normal range. Transmitral Doppler flow pattern is Grade I-abnormal relaxation pattern. RIGHT VENTRICLE The right ventricle is normal size. There is normal right ventricular wall thickness. The right ventricular systolic function is normal. ATRIA The left atrium size is normal. The right atrium size is normal. AORTIC VALVE The aortic valve is not well visualized. There is mild aortic regurgitation. MITRAL VALVE The mitral valve is moderately thickened. GREAT VESSELS The aortic root is normal in size. PERICARDIAL EFFUSION There is a trace loculated anterior pericardial effusion. <Conclusion> The left ventricle is normal size. There is borderline concentric left ventricular hypertrophy. The left ventricular function is normal. The left ventricular ejection fraction is within the normal range. Transmitral Doppler flow pattern is Grade I-abnormal relaxation pattern. There is mild aortic regurgitation.
[2017-01-01] MEDS ORDERED: Iodixanol 320 MG/ML 100 ML BOTTLE IV ONE (16:55)
[2017-01-01] MEDS: Saccharomyces Boulardi 250 mg Cap PO SCH (17:20)
--- NOTE | 2017-01-01 20:22 | CT ---
EXAM: CT Chest With Intravenous Contrast CLINICAL HISTORY: 76 years old, female; Condition or disease; Lung condition and disease; Copd and pneumonia; Additional info: Rule out pneumonia TECHNIQUE: Axial computed tomography images of the chest with intravenous contrast. This CT exam was performed using one or more of the following dose reduction techniques: automated exposure control, adjustment of the mA and/or kV according to patient size, and/or use of iterative reconstruction technique. Coronal and sagittal reformatted images were created and reviewed. CONTRAST: 100 mL of visipaque 320 administered intravenously. EXAM DATE/TIME: 01/01/2017 3:54 PM COMPARISON: CT - ANGIO CHEST PE PROTOCOL 12/22/2015 12:03:29 PM FINDINGS: Lungs and pleural spaces: Trachea and main bronchi are patent. There is a cluster of scattered cysts in the right upper lobe, increased since the prior study. There is atelectasis and scarring in the lingula. There is scarring at the left base. There is an 8mm nodular opacity at the left base, new since the prior study. There is linear scarring and pleural thickening at the left base. There are no effusions. Heart and vasculature: The heart is mildly enlarged. There are coronary calcifications. There is no pericardial effusion. Aorta is normal in caliber.There are vascular calcifications. Pulmonary vessels are unremarkable. Mediastinum: There are multiple mildly enlarged mediastinal nodes increased since the prior study. There are no pathologically enlarged hilar nodes. Esophagus is unremarkable. There is a small hiatal hernia. Thyroid: Thyroid is prominent with nodules. Bones/joints: There are degenerative changes in the osseus structures. The Soft tissues: unremarkable Upper abdomen: There are no acute abnormalities in the visualized portion of the abdomen. There is nodular adrenal thickening bilaterally. There is fatty infiltration of the liver. IMPRESSION: Mild cardiomegaly and atherosclerotic disease; no focal pneumonia; new 8mm left lower lobe nodule; goiter Additional findings as described above. Footer: As per Fleischner Society guidelines for follow-up and management of pulmonary nodules: Recommend initial follow-up chest CT at 3, 9 and 24 months. Consider contrast enhanced chest CT, PET scan and/or biopsy as clinically warranted.
[2017-01-02] MEDS: Albuterol-Ipratrop 3 mg / 0.5 (3 ml) UD INH SCH ×4 (01:00→19:40)
[2017-01-02] MEDS: MethylPREDNISolone 40 mg Vial IVP SCH ×3 (06:38→22:04)
[2017-01-02] MEDS: (Novolin R) Insulin Human Regular 100 units/ml vial SC SCH ×4 (07:32→21:28)
[2017-01-02 07:34] LABS: HEMATOCRIT 28.8 % (34.0-47.0); LYMPH # 1.2 K/uL (1.0-4.3); LYMPH % 5.2 % (20.0-40.0); MEAN CORPUSCULAR HEMOGLOBIN 26.5 pg (27.0-31.0); MEAN CORPUSCULAR HGB CONC 31.1 g/dL (33.0-37.0); MEAN PLATELET VOLUME 9.8 fL (7.2-11.7); MONO # 0.9 K/uL (0.0-0.8); MONO % 3.8 % (0.0-10.0); PLATELET COUNT 274 K/uL (130-400); RED CELL DISTRIBUTION WIDTH 14.5 % (11.5-14.5); WHITE BLOOD COUNT 23.9 K/uL (4.8-10.8)
[2017-01-02 07:50] LABS: CHLORIDE 93 mmol/L (98-107)
[2017-01-02 07:51] LABS: SODIUM 135 mmol/L (132-148)
[2017-01-02 07:53] LABS: BILIRUBIN,TOTAL 0.4 mg/dL (0.2-1.3); CARBON DIOXIDE 30 mmol/L (22-30); GFR AFRICAN-AMERICAN > 60
[2017-01-02 07:54] LABS: ALB/GLOB RATIO 1.4 (1.0-2.1); ALKALINE PHOSPHATASE 81 U/L (38-126); ALT/SGPT 18 U/L (9-52); AST/SGOT 24 U/L (14-36); BLOOD UREA NITROGEN 34 mg/dL (7-17); CALCIUM 9.2 mg/dl (8.6-10.4); GLUCOSE,RANDOM 220 mg/dL (65-105); PHOSPHOROUS 3.9 mg/dL (2.5-4.5); TOTAL PROTEIN 7.2 g/dL (6.3-8.3)
[2017-01-02 07:55] LABS: MAGNESIUM 2.2 mg/dL (1.6-2.3)
[2017-01-02] MEDS: Budesonide 0.5 mg/2 ml Inhal Susp UD INH SCH ×2 (08:38→19:40)
--- NOTE | 2017-01-02 09:27 | CP.PCM.PN ---
<NathanielMaliha - Last Filed: 01/02/17 13:32> Subjective - Date & Time of Evaluation Date of Evaluation: 01/02/17 Time of Evaluation: 07:15 - Subjective Subjective: PGY [address] Morrow: Patient was seen and examined today at bedside. She is breathing comfortably on NC 2L and in no respiratory distress. She reports that her breathing is almost back to her baseline. She complains of continued non-productive cough and reported no more white phelgm production. She denied chest pain but states that she frequently gets anxiety. She reported she was getting a choking sensation when she was lying down for the past day but states that this has resolved then she had one episode after eating her breakfast when she went to lies down. Patient denies CP, sore throat, leg pain, lightheadedness, dizziness, nausea, vomiting, abdominal pain, changes in bowl habits including diarrhea and constipation, or blood in the stool. Her daughters names is Priti interiano , cell . Objective - Vital Signs/Intake and Output Vital Signs (last 24 hours): Temp Pulse Resp BP Pulse Ox 97.8 F 90 18 131/69 96 01/02/17 07:00 01/02/17 07:00 01/02/17 07:00 01/02/17 07:00 01/02/17 07:00 - Medications Medications: Current Medications Albuterol/Ipratropium (Duoneb 3 Mg/0.5 Mg (3 Ml) Ud) 3 ml INH RQ6 [facility] Last Admin: 01/02/17 08:38 Dose: 3 ml Alprazolam (Xanax) 1 mg PO TID PRN PRN Reason: Anxiety Last Admin: 01/02/17 06:57 Dose: 1 mg Amlodipine Besylate (Norvasc) 10 mg PO DAILY [facility] Last Admin: 01/01/17 09:46 Dose: 10 mg Aspirin (Ecotrin) 81 mg PO DAILY [facility] Last Admin: 01/01/17 09:43 Dose: 81 mg Budesonide (Pulmicort Respules) 0.5 mg INH RQ12 [facility] Last Admin: 01/02/17 08:38 Dose: 0.5 mg Clopidogrel Bisulfate (Plavix) 75 mg PO DAILY [facility] Last Admin: 01/01/17 09:42 Dose: 75 mg Famotidine (Pepcid) 20 mg PO BID [facility] Last Admin: 01/01/17 17:19 Dose: 20 mg Furosemide (Lasix) 20 mg PO DAILY [facility] Last Admin: 01/01/17 09:43 Dose: 20 mg Heparin Sodium (Porcine) (Heparin) 5,000 units SC Q8 [facility] Last Admin: 01/02/17 06:38 Dose: 5,000 units Moxifloxacin HCl (Avelox Iv 400mg/250ml Ns) 250 mls @ 167 mls/hr IVPB Q24H [facility] Last Admin: 01/01/17 13:51 Dose: 167 mls/hr Insulin Human Regular (Novolin R) 0 unit SC ACHS [facility] PRN Reason: Protocol Last Admin: 01/02/17 07:32 Dose: 4 unit Methylprednisolone (Solu-Medrol) 40 mg IVP Q12 [facility] Pneumococcal Polyvalent Vaccine (Pneumovax 23 Vaccine) 0.5 ml IM .ONCE ONE Stop: 01/03/17 10:01 Saccharomyces Boulardii (Florastor) 250 mg PO BID [facility] Last Admin: 01/01/17 17:20 Dose: 250 mg Sitagliptin Phosphate (Januvia) 50 mg PO BID [facility] Last Admin: 01/01/17 17:19 Dose: 50 mg - Labs Labs: 01/02/17 07:12 01/02/17 07:12 PT 11.5 SECONDS (9.7-12.2) 01/01/17 01:27 INR 1.0 01/01/17 01:27 APTT 33 SECONDS (21-34) 01/01/17 01:27 - Constitutional Appears: Non-toxic, No Acute Distress - Head Exam Head Exam: ATRAUMATIC, NORMAL INSPECTION - Eye Exam Eye Exam: EOMI, Normal appearance, PERRL Pupil Exam: NORMAL ACCOMODATION - ENT Exam ENT Exam: Mucous Membranes Moist - Respiratory Exam Respiratory Exam: Decreased Breath Sounds, Clear to Ausculation Bilateral, NORMAL BREATHING PATTERN. absent: Accessory Muscle Use, Chest Wall Tenderness, Wheezes, Respiratory Distress Additional comments: on NC at 2 L, decreased breath sounds but better air movement today - Cardiovascular Exam Cardiovascular Exam: REGULAR RHYTHM, +S1, +S2 - GI/Abdominal Exam GI & Abdominal Exam: Soft, Normal Bowel Sounds. absent: Distended, Firm, Guarding, Tenderness - Extremities Exam Extremities Exam: Normal Inspection. absent: Calf Tenderness, Pedal Edema - Back Exam Back Exam: NORMAL INSPECTION. absent: CVA tenderness (L), CVA tenderness (R), paraspinal tenderness - Neurological Exam Neurological Exam: Alert, Awake, Oriented x3 - Psychiatric Exam Psychiatric exam: Normal Affect, Normal Mood - Skin Skin Exam: Dry, Intact, Normal Color, Warm Assessment and Plan - Assessment and Plan (Free Text) Assessment: 1) COPD exacerbation Assessment and Plan: Improving, decreased breath sounds Patient with improved SOB after Solumedrol 125 mg IVP dose given in the ED and Duoneb treatments. Patient on 3-4L of O2 at home continuously. Duoneb Q6H [facility] Pulmicort respules 0.5 Q12H Solumedrol 40 mg IVP Q12 hours [facility] - decreased today O2 2L NC Dr. Chavez (pulmonary) consulted, help appreciated Chest xray (12/31/16): mild bibasilar atelectasis CT Chest - mild cardiomegaly and atherosclerotic disease, no focal pneumonia, new 8mm left lower lobe nodule. Per Dr. Chavez will need surveillance with a follow up chest CT in 3 months and a PET scan. Pt will be given a prescription for PET on discharge. Status: Chronic Leukocytosis Assessment and Plan: WBC 23.9 down from 25.6 with left shift, no bands (is on steroids) unsure if was on previous steroids, will place call to her primary care physician CXR 01/01/17 mild bi-basilar atelectasis, cardiomegaly, scolosis, calcifications in the aorta UA - 2+ protein, 1+ blood, 9 RBC, no sign of infections f/u blood cultures f/u Urine C&S - negative f/u am labs Moxifloxacin 400mg IVPB daily (started 01/01/17) to cover for community acquired pneumonia Procalcitoni: low Florastor 250 mg PO bid Status: Acute Pneumonia (rule out) Assessment and Plan: WBC 25.6 with left shift, no bands CXR 01/01/17 mild bi-basilar atelectasis, cardiomegaly, scolosis, calcifications in the aorta f/u CT chest w/o contrast can be given a dose of Ativan 1mg prior to CT f/u am labs, legionella, strep, mycoplasma, influenza Moxifloxacin 400mg IVPB daily (started 01/01) Florastor 250mg PO bid Pneumonia severity index: 68 points; based on clinical judgement for either outpatient or inpatient management Status: Acute CAD (coronary artery disease) Assessment and Plan: Patient with hx of double vessel disease as per cath 2016 with 90% stenosis of RCA and LAD. Troponin negative on admission EKG showed NSR 100 bpm, with unspecific ST changes. f/u CRISTIAN negative x 3, with EKGs no change from previous transferred to telemetry floor Plavix 75 mg PO daily Aspirin 81 mg PO daily Norvasc 10 mg PO daily ECHO with normal EF in 2015. repeat ECHO 01/01 - borderline concentric left ventricular hypertrophy, LVfunction, EF within normal range, grade 1 abnromal relaxation pattern, mild aortic regurg Tchol 192, Trig 144, HDL 60, LDL 97 Status: Acute Diabetes mellitus Assessment and Plan: ISS Restart home Januvia 50mg PO BID ACCU CHECKS ACHS Hgb A1C - 6.1 controlled sugars slightly elevated highest 258, on steroids Status: Chronic HTN (hypertension) Assessment and Plan: Norvasc 10 mg PO daily Lasix 20 mg PO daily Monitor Status: Chronic Priority: Medium Anemia Assessment and Plan: Hgb dropped today to 9, will monitor Patient with Hgb 10.2 on admission and 10.6 today, stable, no signs of bleeding Patient with EGD and colonoscopy done last year for anemia. Obtain results from PMD. MCV - 85.7 Fe - 30 TIBC - 397 % Sat - 8 Ferritin - 27.7 Retic count - 1.2 f/u FOBT Status: Acute Anxiety Assessment and Plan: Patient take Xanax 1mg TID as outpatient Status: Acute Prophylactic measure Assessment and Plan: Pepcid 20 mg PO BID Heparin SC Q8H [facility] Heart Healthy diet PT for deconditioning Status: Acute Resident placed to her primary care Dr. Monica Young yesterday. . Message was left but office is closed. Will reattempt today. <Ranjith Morrow - Last Filed: 01/02/17 16:13> Objective - Vital Signs/Intake and Output Vital Signs (last 24 hours): Temp Pulse Resp BP Pulse Ox 97.8 F 90 18 130/70 96 01/02/17 07:00 01/02/17 07:00 01/02/17 07:00 01/02/17 10:01 01/02/17 07:00 - Medications Medications: Current Medications Albuterol/Ipratropium (Duoneb 3 Mg/0.5 Mg (3 Ml) Ud) 3 ml INH RQ6 [facility] Last Admin: 01/02/17 13:46 Dose: 3 ml Alprazolam (Xanax) 1 mg PO TID PRN PRN Reason: Anxiety Last Admin: 01/02/17 15:49 Dose: 1 mg Amlodipine Besylate (Norvasc) 10 mg PO DAILY [facility] Last Admin: 01/02/17 10:00 Dose: 10 mg Aspirin (Ecotrin) 81 mg PO DAILY [facility] Last Admin: 01/02/17 10:00 Dose: 81 mg Budesonide (Pulmicort Respules) 0.5 mg INH RQ12 [facility] Last Admin: 01/02/17 08:38 Dose: 0.5 mg Clopidogrel Bisulfate (Plavix) 75 mg PO DAILY [facility] Last Admin: 01/02/17 10:00 Dose: 75 mg Famotidine (Pepcid) 20 mg PO BID [facility] Last Admin: 01/02/17 10:00 Dose: 20 mg Furosemide (Lasix) 20 mg PO DAILY [facility] Last Admin: 01/02/17 10:01 Dose: 20 mg Heparin Sodium (Porcine) (Heparin) 5,000 units SC Q8 [facility] Last Admin: 01/02/17 12:59 Dose: 5,000 units Moxifloxacin HCl (Avelox Iv 400mg/250ml Ns) 250 mls @ 167 mls/hr IVPB Q24H [facility] Last Admin: 01/02/17 11:00 Dose: 167 mls/hr Insulin Human Regular (Novolin R) 0 unit SC ACHS [facility] PRN Reason: Protocol Last Admin: 01/02/17 12:00 Dose: 8 unit Methylprednisolone (Solu-Medrol) 40 mg IVP Q12 [facility] Last Admin: 01/02/17 10:04 Dose: 40 mg Pneumococcal Polyvalent Vaccine (Pneumovax 23 Vaccine) 0.5 ml IM .ONCE ONE Stop: 01/03/17 10:01 Saccharomyces Boulardii (Florastor) 250 mg PO BID [facility] Last Admin: 01/02/17 10:00 Dose: 250 mg Sitagliptin Phosphate (Januvia) 50 mg PO BID [facility] Last Admin: 01/02/17 10:00 Dose: 50 mg - Labs Labs: 01/02/17 07:12 01/02/17 07:12 PT 11.5 SECONDS (9.7-12.2) 01/01/17 01:27 INR 1.0 01/01/17 01:27 APTT 33 SECONDS (21-34) 01/01/17 01:27 Attending/Attestation - Attestation I have personally seen and examined this patient.: Yes I have fully participated in the care of the patient.: Yes I have reviewed all pertinent clinical information, including history, physical exam and plan: Yes Notes (Text): Medical Attending: Patient was seen and examined by me. Agree with the above note by the resident. At this time continue with Pulmicort BID and also continue duonebulizers as well. When we asked the patient, she says that her breathing is almost back to normal at this time. The CT scan of the chest The WBC is decreased slightly, this maybe due to the steroids she is on for her breathing. She is afebrile and currently pending the results of the culture CT Chest - mild cardiomegaly and atherosclerotic disease, no focal pneumonia, new left lower lobe nodule. Per pulmonology will need surveillance with a follow up chest CT in 3 months and a PET scan. Pt will be given a prescription for PET on discharge. thank you Ranjith Morrow
[2017-01-02 09:31] LABS: NEUTROPHIL 90 % (50-75); TOTAL CELLS COUNTED 100
[2017-01-02 09:32] LABS: LARGE PLATELETS PRESENT
[2017-01-02] MEDS: Saccharomyces Boulardi 250 mg Cap PO SCH ×2 (10:00→17:19)
--- NOTE | 2017-01-02 10:43 | CP.PCM.PN ---
Subjective - Date & Time of Evaluation Date of Evaluation: 01/02/17 Time of Evaluation: 10:15 - Subjective Subjective: Pt was seen and examined today at bedside breathing comfortably on NC. Pt complains of continued but reduced or improved non-productive cough, congestion , and chocking when laying down. Patient denies fevers or chills, SOB, Chest Pain, lightheadedness, dizziness, and abdominal pain. Headache, chronic condition, remitted by Tylenol this AM. Objective - Vital Signs/Intake and Output Vital Signs (last 24 hours): Temp Pulse Resp BP Pulse Ox 97.8 F 90 18 130/70 96 01/02/17 07:00 01/02/17 07:00 01/02/17 07:00 01/02/17 10:01 01/02/17 07:00 - Medications Medications: Current Medications Albuterol/Ipratropium (Duoneb 3 Mg/0.5 Mg (3 Ml) Ud) 3 ml INH RQ6 [facility] Last Admin: 01/02/17 08:38 Dose: 3 ml Alprazolam (Xanax) 1 mg PO TID PRN PRN Reason: Anxiety Last Admin: 01/02/17 06:57 Dose: 1 mg Amlodipine Besylate (Norvasc) 10 mg PO DAILY [facility] Last Admin: 01/02/17 10:00 Dose: 10 mg Aspirin (Ecotrin) 81 mg PO DAILY [facility] Last Admin: 01/02/17 10:00 Dose: 81 mg Budesonide (Pulmicort Respules) 0.5 mg INH RQ12 [facility] Last Admin: 01/02/17 08:38 Dose: 0.5 mg Clopidogrel Bisulfate (Plavix) 75 mg PO DAILY [facility] Last Admin: 01/02/17 10:00 Dose: 75 mg Famotidine (Pepcid) 20 mg PO BID [facility] Last Admin: 01/02/17 10:00 Dose: 20 mg Furosemide (Lasix) 20 mg PO DAILY [facility] Last Admin: 01/02/17 10:01 Dose: 20 mg Heparin Sodium (Porcine) (Heparin) 5,000 units SC Q8 [facility] Last Admin: 01/02/17 06:38 Dose: 5,000 units Moxifloxacin HCl (Avelox Iv 400mg/250ml Ns) 250 mls @ 167 mls/hr IVPB Q24H [facility] Last Admin: 01/01/17 13:51 Dose: 167 mls/hr Insulin Human Regular (Novolin R) 0 unit SC ACHS [facility] PRN Reason: Protocol Last Admin: 01/02/17 07:32 Dose: 4 unit Methylprednisolone (Solu-Medrol) 40 mg IVP Q12 [facility] Last Admin: 01/02/17 10:04 Dose: 40 mg Pneumococcal Polyvalent Vaccine (Pneumovax 23 Vaccine) 0.5 ml IM .ONCE ONE Stop: 01/03/17 10:01 Saccharomyces Boulardii (Florastor) 250 mg PO BID [facility] Last Admin: 01/02/17 10:00 Dose: 250 mg Sitagliptin Phosphate (Januvia) 50 mg PO BID [facility] Last Admin: 01/02/17 10:00 Dose: 50 mg - Labs Labs: 01/02/17 07:12 01/02/17 07:12 PT 11.5 SECONDS (9.7-12.2) 01/01/17 01:27 INR 1.0 01/01/17 01:27 APTT 33 SECONDS (21-34) 01/01/17 01:27 - Constitutional Appears: Well, No Acute Distress - Head Exam Head Exam: ATRAUMATIC, NORMOCEPHALIC - Respiratory Exam Respiratory Exam: Decreased Breath Sounds, NORMAL BREATHING PATTERN - Cardiovascular Exam Cardiovascular Exam: +S1, +S2. absent: Murmur - Neurological Exam Neurological Exam: Alert, Awake, Oriented x3 - Psychiatric Exam Psychiatric exam: Normal Affect, Normal Mood - Skin Skin Exam: Dry, Intact, Normal Color, Warm Assessment and Plan (1) COPD exacerbation Assessment & Plan: CXR 01/01/17 mild bi-basilar atelectasis Chest CT 01/01/2017: mild cardiomegaly, atherosclerosis, no focal pneumonia, new 8mm LLL nodule, goiter ECHO 01/01/17 mild LV hypertrophy with normal range EF Following descending elevated WBC lab value Continue Duoneb, steroids, and antibiotics Consider sleep study outpatient and PET Scan recommended as outpatient Status: Chronic
[2017-01-02] MEDS: Moxifloxacin IV 400mg/250ml NS 250 ML IVPB SCH (11:00)
[2017-01-02 17:17] VITALS: RESP 20
[2017-01-02] MEDS ORDERED: Benzocaine/Menthol (Cepacol) Lozenge MT PRN (19:25)
[2017-01-03] MEDS: Albuterol-Ipratrop 3 mg / 0.5 (3 ml) UD INH SCH ×3 (01:18→13:01)
[2017-01-03] MEDS: Budesonide 0.5 mg/2 ml Inhal Susp UD INH SCH (07:40)
[2017-01-03 09:01] VITALS: O2SAT 97
[2017-01-03] MEDS: MethylPREDNISolone 40 mg Vial IVP SCH (09:38)
[2017-01-03] MEDS: Saccharomyces Boulardi 250 mg Cap PO SCH ×2 (09:38→17:58)
[2017-01-03] MEDS: (Novolin R) Insulin Human Regular 100 units/ml vial SC SCH ×3 (09:39→18:00)
[2017-01-03] MEDS ORDERED: Pneumococcal 23-Valent Vaccine IM ONE (10:00)
--- NOTE | 2017-01-03 11:32 | CP.PCM.PN ---
Subjective - Date & Time of Evaluation Date of Evaluation: 01/03/17 Time of Evaluation: 10:00 - Subjective Subjective: Pt was seen and examined at bedside today breathing comfortably on NC. Pt complains of worsening non-productive cough, chest pain only with cough, and congestion. She feels that she perceives that symptoms are worsening due to anxiety. Also complains of a burning sensation in her legs that she describes as consistent with past flair-ups of shingles. Patient denies SOB, hemoptosis, sputum, chocking when laying down, abdominal pain, and headache. Objective - Vital Signs/Intake and Output Vital Signs (last 24 hours): Temp Pulse Resp BP Pulse Ox 97.9 F 76 20 162/73 H 97 01/03/17 08:00 01/03/17 08:00 01/03/17 08:00 01/03/17 09:38 01/03/17 08:00 Intake and Output: 01/03/17 01/03/17 06:59 18:59 Intake Total 360 Balance 360 - Medications Medications: Current Medications Albuterol/Ipratropium (Duoneb 3 Mg/0.5 Mg (3 Ml) Ud) 3 ml INH RQ6 [facility] Last Admin: 01/03/17 07:39 Dose: 3 ml Alprazolam (Xanax) 1 mg PO TID PRN PRN Reason: Anxiety Last Admin: 01/02/17 20:15 Dose: 1 mg Amlodipine Besylate (Norvasc) 10 mg PO DAILY [facility] Last Admin: 01/03/17 09:38 Dose: 10 mg Aspirin (Ecotrin) 81 mg PO DAILY [facility] Last Admin: 01/03/17 09:38 Dose: 81 mg Benzocaine/Menthol (Cepacol Sore Throat) 1 diana MT Q3H PRN PRN Reason: Sore Throat Last Admin: 01/02/17 20:15 Dose: 1 diana Budesonide (Pulmicort Respules) 0.5 mg INH RQ12 [facility] Last Admin: 01/03/17 07:40 Dose: Not Given Clopidogrel Bisulfate (Plavix) 75 mg PO DAILY [facility] Last Admin: 01/03/17 09:38 Dose: 75 mg Famotidine (Pepcid) 20 mg PO BID [facility] Last Admin: 01/03/17 09:38 Dose: 20 mg Furosemide (Lasix) 20 mg PO DAILY [facility] Last Admin: 01/03/17 09:38 Dose: 20 mg Heparin Sodium (Porcine) (Heparin) 5,000 units SC Q8 [facility] Last Admin: 01/03/17 06:11 Dose: 5,000 units Moxifloxacin HCl (Avelox Iv 400mg/250ml Ns) 250 mls @ 167 mls/hr IVPB Q24H [facility] Last Admin: 01/02/17 11:00 Dose: 167 mls/hr Insulin Human Regular (Novolin R) 0 unit SC ACHS [facility] PRN Reason: Protocol Last Admin: 01/03/17 09:39 Dose: 4 unit Methylprednisolone (Solu-Medrol) 40 mg IVP Q12 [facility] Last Admin: 01/02/17 22:04 Dose: 40 mg Saccharomyces Boulardii (Florastor) 250 mg PO BID [facility] Last Admin: 01/03/17 09:38 Dose: 250 mg Sitagliptin Phosphate (Januvia) 50 mg PO BID [facility] Last Admin: 01/03/17 09:38 Dose: 50 mg - Labs Labs: 01/02/17 07:12 01/02/17 07:12 PT 11.5 SECONDS (9.7-12.2) 01/01/17 01:27 INR 1.0 01/01/17 01:27 APTT 33 SECONDS (21-34) 01/01/17 01:27 - Constitutional Appears: Well, No Acute Distress - Head Exam Head Exam: ATRAUMATIC, NORMOCEPHALIC - Respiratory Exam Respiratory Exam: Decreased Breath Sounds, NORMAL BREATHING PATTERN. absent: Rales, Rhonchi, Wheezes, Respiratory Distress - Cardiovascular Exam Cardiovascular Exam: +S1, +S2. absent: Murmur - Neurological Exam Neurological Exam: Alert, Awake, Oriented x3 Additional comments: tremor consistent with side effect of albuterol - Psychiatric Exam Psychiatric exam: Normal Affect, Normal Mood - Skin Skin Exam: Dry, Intact, Normal Color, Warm Assessment and Plan (1) COPD exacerbation Assessment & Plan: CXR 01/01/17 mild bi-basilar atelectasis Chest CT 01/01/2017: mild cardiomegaly, atherosclerosis, no focal pneumonia, new 8mm LLL nodule, goiter ECHO 01/01/17 mild LV hypertrophy with normal range EF Continue current management and followup as needed Consider sleep study outpatient and PET Scan recommended as outpatient Status: Chronic
[2017-01-03] MEDS: Moxifloxacin IV 400mg/250ml NS 250 ML IVPB SCH (13:40)
--- NOTE | 2017-01-03 15:08 | CP.PCM.DIS ---
<Maliha Armstrong - Last Filed: 01/07/17 09:44> Provider - Provider Date of Admission: 01/01/17 03:07 Attending physician: Fernando Holly MD Primary care physician: Sharan Glaser MD Consults: Dr. Scott tomlinson Time Spent in preparation of Discharge (in minutes): 35 Hospital Course - Lab Results Lab Results: Micro Results 01/01/17 06:38 Urine,Clean Catch Urine Culture - Final No Growth (<1,000 CFU/ML) Most Recent Lab Values WBC 23.9 K/uL (4.8-10.8) H 01/02/17 07:12 RBC 3.38 Mil/uL (3.80-5.20) L 01/02/17 07:12 Hgb 9.0 g/dL (11.0-16.0) L 01/02/17 07:12 Hct 28.8 % (34.0-47.0) L 01/02/17 07:12 MCV 85.0 fL (81.0-99.0) 01/02/17 07:12 MCH 26.5 pg (27.0-31.0) L 01/02/17 07:12 MCHC 31.1 g/dL (33.0-37.0) L 01/02/17 07:12 RDW 14.5 % (11.5-14.5) 01/02/17 07:12 Plt Count 274 K/uL (130-400) 01/02/17 07:12 MPV 9.8 fL (7.2-11.7) 01/02/17 07:12 Neut % (Auto) 91.0 % (50.0-75.0) H 01/02/17 07:12 Lymph % (Auto) 5.2 % (20.0-40.0) L 01/02/17 07:12 Hamilton % (Auto) 3.8 % (0.0-10.0) 01/02/17 07:12 Eos % (Auto) 0.0 % (0.0-4.0) 01/02/17 07:12 Baso % (Auto) 0.0 % (0.0-2.0) 01/02/17 07:12 Neut # 21.8 K/uL (1.8-7.0) H 01/02/17 07:12 Lymph # 1.2 K/uL (1.0-4.3) 01/02/17 07:12 Hamilton # 0.9 K/uL (0.0-0.8) H 01/02/17 07:12 Eos # 0.0 K/uL (0.0-0.7) 01/02/17 07:12 Baso # 0.0 K/uL (0.0-0.2) 01/02/17 07:12 Neutrophils % (Manual) 90 % (50-75) H 01/02/17 07:12 Band Neutrophils % 2 % (0-2) 01/02/17 07:12 Lymphocytes % (Manual) 4 % (20-40) L 01/02/17 07:12 Reactive Lymphs % 1 % (0-0) H 01/01/17 06:48 Monocytes % (Manual) 4 % (0-10) 01/02/17 07:12 Toxic Granulation Present 01/02/17 07:12 Platelet Estimate Normal (NORMAL) 01/02/17 07:12 Large Platelets Present 01/02/17 07:12 Hypochromasia (manual) Slight 01/02/17 07:12 Basophilic Stippling Slight 01/02/17 07:12 Ovalocytes Slight 01/01/17 06:48 Retic Count 1.2 % (0.5-1.5) 01/02/17 07:12 PT 11.5 SECONDS (9.7-12.2) 01/01/17 01:27 INR 1.0 01/01/17 01:27 APTT 33 SECONDS (21-34) 01/01/17 01:27 Puncture Site By rn 01/01/17 01:20 pCO2 34 mm/Hg (35-45) L 01/01/17 01:20 pO2 47 mm/Hg (80-100) L 01/01/17 01:20 HCO3 22.2 mmol/L (21-28) 01/01/17 01:20 ABG pH 7.40 (7.35-7.45) 01/01/17 01:20 ABG Total CO2 22.1 mmol/L (22-28) 01/01/17 01:20 ABG O2 Saturation 85.7 % (95-98) L 01/01/17 01:20 ABG Base Excess -3.0 mmol/L (-2.0-3.0) L 01/01/17 01:20 Edinson Test Na 01/01/17 01:20 ABG Potassium 1.9 mmol/L (3.6-5.2) L* 01/01/17 01:20 A-a O2 Difference 60.0 mm/Hg 01/01/17 01:20 Respiratory Index 1.3 01/01/17 01:20 Sodium 143.0 mmol/l (132-148) 01/01/17 01:20 Chloride 119.0 mmol/L (98-107) H 01/01/17 01:20 Glucose 117 mg/dl (65-105) H 01/01/17 01:20 Lactate 1.0 mmol/L (0.7-2.1) 01/01/17 01:20 FiO2 21.0 % 01/01/17 01:20 Crit Value Called To Katelyn felipe/luis 01/01/17 01:20 Crit Value Called By Jaime najera 01/01/17 01:20 Crit Value Read Back Y 01/01/17 01:20 Blood Gas Notified Time 135 01/01/17 01:20 Sodium 135 mmol/L (132-148) 01/02/17 07:12 Potassium 4.0 mmol/L (3.6-5.2) 01/02/17 07:12 Chloride 93 mmol/L (98-107) L 01/02/17 07:12 Carbon Dioxide 30 mmol/L (22-30) 01/02/17 07:12 Anion Gap 16 (10-20) 01/02/17 07:12 BUN 34 mg/dL (7-17) H 01/02/17 07:12 Creatinine 0.9 MG/DL (0.7-1.2) 01/02/17 07:12 Est GFR ( Amer) > 60 01/02/17 07:12 Est GFR (Non-Af Amer) > 60 01/02/17 07:12 POC Glucose (mg/dL) 412 mg/dL (65-110) H* 01/03/17 11:34 Random Glucose 220 mg/dL (65-105) H 01/02/17 07:12 Hemoglobin A1c 6.1 % (4.2-6.5) 01/01/17 06:48 Calcium 9.2 mg/dl (8.6-10.4) 01/02/17 07:12 Phosphorus 3.9 mg/dL (2.5-4.5) 01/02/17 07:12 Magnesium 2.2 mg/dL (1.6-2.3) 01/02/17 07:12 Iron 30 ug/dL (37-170) L 01/01/17 10:21 TIBC 397 ug/dL (250-450) 01/01/17 10:21 % Saturation 8 (20-55) L 01/01/17 10:21 Transferrin 334.59 mg/dL (206-381) 01/01/17 10:31 Ferritin 27.7 ng/mL 01/01/17 06:48 Total Bilirubin 0.4 mg/dL (0.2-1.3) 01/02/17 07:12 AST 24 U/L (14-36) 01/02/17 07:12 ALT 18 U/L (9-52) 01/02/17 07:12 Alkaline Phosphatase 81 U/L (38-126) 01/02/17 07:12 Total Creatine Kinase 168 U/L (30-135) H 01/01/17 15:04 CK-MB (Mass) 1.91 ng/mL (0.0-3.38) 01/01/17 15:04 Troponin I 0.0120 ng/mL (0.00-0.120) 01/01/17 01:27 Troponin I, Quant < 0.0120 ng/mL (0.00-0.120) 01/01/17 15:04 NT-Pro-B Natriuret Pep 221 pg/mL (0-900) 01/01/17 01:27 Total Protein 7.2 g/dL (6.3-8.3) 01/02/17 07:12 Albumin 4.2 g/dL (3.5-5.0) 01/02/17 07:12 Globulin 3.0 gm/dL (2.2-3.9) 01/02/17 07:12 Albumin/Globulin Ratio 1.4 (1.0-2.1) 01/02/17 07:12 Triglycerides 144 mg/dL (0-149) D 01/01/17 06:48 Cholesterol 192 mg/dL (0-199) 04/05/17 06:48 LDL Cholesterol Direct 97 mg/dL (0-129) 01/01/17 06:48 HDL Cholesterol 60 mg/dL (30-70) 01/01/17 06:48 Procalcitonin 0.09 NG/ML (0.19-0.49) L 01/01/17 10:21 TSH 3rd Generation 0.59 mIU/L (0.46-4.68) 01/01/17 06:48 Arterial Blood Potassium 1.9 mmol/L (3.6-5.2) L* 01/01/17 01:20 Urine Color Yellow (YELLOW) 01/01/17 01:10 Urine Clarity Clear (Clear) 01/01/17 01:10 Urine pH 5.0 (5.0-8.0) 01/01/17 01:10 Ur Specific [place] 1.019 (1.003-1.030) 01/01/17 01:10 Urine Protein 2+ mg/dL (NEGATIVE) H 01/01/17 01:10 Urine Glucose (UA) Normal mg/dL (Normal) 01/01/17 01:10 Urine Ketones Negative mg/dL (NEGATIVE) 01/01/17 01:10 Urine Blood 1+ (NEGATIVE) H 01/01/17 01:10 Urine Nitrate Negative (NEGATIVE) 01/01/17 01:10 Urine Bilirubin Negative (NEGATIVE) 01/01/17 01:10 Urine Urobilinogen Normal mg/dL (0.2-1.0) 01/01/17 01:10 Ur Leukocyte Esterase Neg Alice/uL (Negative) 01/01/17 01:10 Urine WBC (Auto) 1 /hpf (0-5) 01/01/17 01:10 Urine RBC (Auto) 9 /hpf (0-3) H 01/01/17 01:10 Ur Squamous Epith Cells 2 /hpf (0-5) 01/01/17 01:10 Stool Occult Blood Negative (NEGATIVE) 01/02/17 20:42 Influenza Typ A,B (EIA) Negative for flu a/b (NEGATIVE) 01/01/17 20:30 Ur L.pneumophila Ag Negative (NEGATIVE) 01/02/17 20:44 Mycoplasma pneumon IgM Negative (NEGATIVE) 01/02/17 07:12 - Hospital Course Hospital Course: On admission: 76 year old female with PMHx of COPD on O2 at home, CAD, DM, HTN, arthritis, anxiety presents with 1-2 day history of worsening dyspnea. She uses 3-4L of O2 via NC around the clock. Patient also reports new onset cough that is dry and non productive. She recently re-started home neb treatments and thinks this is what started all her issues. She denies fevers, chills. She has not chest pain now, but admits she gets chest pain intermittently for a "long time". Chest pain is intermittent, left sides, "burning" and lasts only a for a few seconds at a time. She attributes the chest pain to food intake, although she also notices when she is "upset". She was seen by a clinic coordinator during admission to [facility] last year where she had elevated troponins and had cath done. Patient reports she was told "everything was okay", however as per cath report, patient has double vessel disease and was treated conservatively. Patient admits she never followed up with cardio as outpatient. She denies fevers, chills, nausea, vomiting, diarrhea, constipation, dysuria, abdominal pain, numbness, tingling, myalgias. Admits to inability to lay flat. Denies sick contacts, recent hospital stay or recent travel. Patient was made to come in for evaluation after she placed call to her PMD. During Hospital Stay: Patient was admitted for COPD exacerbation. Her breathing effort improved after recieveing IV steroids along with Duonebs breathing treatment and pulmicort. She used 2 L of oxygen on NC at all times. CT chest showed mild cardiomegaly and atherosclerotic disease, no focal pneumonia, new 8mm left lower lobe nodule. Per Dr. Chavez will need surveillance with a follow up chest CT in 3 months and a PET scan. Pt will be given a prescription for PET on discharge. Patient was noted to have leukocytosis unsure if from steroids or from an infection, She was started on Moxifloxcin to cover for pneumonia. Urine and blood cultures were negative. Patient also has history of CAD with double vessel disease per cath in 2016. Plavix, asa, and noravc were continued. ECHO 01/01 showed borderline concentric left ventricular hypertrophy, LV function, EF within normal range, grade 1 abnormal relaxation pattern, mild aortic regurg. Patient was given Januvia and Insulin as coverage for her diabetes. Patient was also noted to be anemic. FOBT was negative. Patient had en egd and colonoscopy last year due to anemia. This is a chronic condition according to her primary care. Patient stable for discharge home. Patient is to follow up with Dr. Young within one week of discharge for post hospital care. Patient is also to follow up with Dr. Chavez for her COPD. Patient was found to have a small lung nodule during her hospitalizations. She was given a script ofr PET scan and will need a follow up CT in 3 months. Patient is to use 2 L of oxygen at home per nasal cannula at all times. Patient is to resume her home medications and also take the following: Zpack - as instructed on the package Prednisone taper as follows: Day 1 - take 4 10mg tabs by mouth Day 2 - take 4 10mg tabs by mouth Day 3 - take 2 10 mg tabs by mouth Day 4 - take 2 10 mg tabs by mouth Day 5 - take 1 10 mg tabs by mouth Day 6 - take 1 10 mg tabs by mouth Patient to to return to the ED if symptoms worsen or do not improve. All instructions explained to her and she agrees. Discharge Exam - Head Exam Head Exam: ATRAUMATIC, NORMOCEPHALIC - Eye Exam Eye Exam: EOMI, Normal appearance Pupil Exam: NORMAL ACCOMODATION, PERRL - ENT Exam ENT Exam: Mucous Membranes Moist - Respiratory Exam Respiratory Exam: Decreased Breath Sounds, NORMAL BREATHING PATTERN. absent: Accessory Muscle Use, Chest Wall Tenderness, Rhonchi, Wheezes, Respiratory Distress - Cardiovascular Exam Cardiovascular Exam: REGULAR RHYTHM, +S1, +S2 - GI/Abdominal Exam GI & Abdominal Exam: Soft. absent: Distended, Firm, Guarding - Extremities Exam Extremities exam: normal inspection, pedal pulses present - Back Exam Back exam: NORMAL INSPECTION. absent: CVA tenderness (L), CVA tenderness (R) - Neurological Exam Neurological exam: Alert, CN II-XII Intact, Normal Gait, Oriented x3 - Psychiatric Exam Psychiatric exam: Normal Affect, Normal Mood - Skin Skin Exam: Dry, Intact, Normal Color, Warm Discharge Plan - Discharge Medications Prescriptions: ALPRAZolam [Xanax] 1 mg PO TID PRN #12 tab PRN Reason: Anxiety Azithromycin [Z-Adama] 250 mg PO DAILY #6 tab predniSONE [Prednisone] See Taper PO DAILY 6 Days - Follow Up Plan Condition: GOOD Disposition: HOME/ ROUTINE Instructions: Prednisone (By mouth), Azithromycin (By mouth), Heart Healthy Diet (DC), Diabetes Mellitus Type 2 in Adults (DC), COPD (Chronic Obstructive Pulmonary Disease) (DC), Meal Planning with the Plate Method (DC), Hypertension (DC) Additional Instructions: Patient stable for discharge home. Patient is to follow up with Dr. Young within one week of discharge for post hospital care. Patient is also to follow up with Dr. Chavez for her COPD. Patient was found to have a small lung nodule during her hospitalizations. She was given a script ofr PET scan and will need a follow up CT in 3 months. Patient is to use 2 L of oxygen at home per nasal cannula at all times. Patient is to resume her home medicatons and also take the following: Zpack - as instructed on the package Prednisone taper as follows: Day 1 - take 4 10mg tabs by mouth Day 2 - take 4 10mg tabs by mouth Day 3 - take 2 10 mg tabs by mouth Day 4 - take 2 10 mg tabs by mouth Day 5 - take 1 10 mg tabs by mouth Day 6 - take 1 10 mg tabs by mouth Patient to to return to the ED if symptoms worsen or do not improve. All instructions explained to her and she agrees. Referrals: Sharan Glaser MD [Primary Care Provider] - Jamel Chavez MD [Staff Provider] - <Ranjith Morrow Nehemias - Last Filed: 01/13/17 07:29> Provider - Provider Date of Admission: 01/01/17 03:07 Attending physician: Fernando Holly MD Primary care physician: Sharan Glaser MD Hospital Course - Lab Results Lab Results: Micro Results 01/01/17 06:38 Urine,Clean Catch Urine Culture - Final No Growth (<1,000 CFU/ML) Most Recent Lab Values WBC 23.9 K/uL (4.8-10.8) H 01/02/17 07:12 RBC 3.38 Mil/uL (3.80-5.20) L 01/02/17 07:12 Hgb 9.0 g/dL (11.0-16.0) L 01/02/17 07:12 Hct 28.8 % (34.0-47.0) L 01/02/17 07:12 MCV 85.0 fL (81.0-99.0) 01/02/17 07:12 MCH 26.5 pg (27.0-31.0) L 01/02/17 07:12 MCHC 31.1 g/dL (33.0-37.0) L 01/02/17 07:12 RDW 14.5 % (11.5-14.5) 01/02/17 07:12 Plt Count 274 K/uL (130-400) 01/02/17 07:12 MPV 9.8 fL (7.2-11.7) 01/02/17 07:12 Neut % (Auto) 91.0 % (50.0-75.0) H 01/02/17 07:12 Lymph % (Auto) 5.2 % (20.0-40.0) L 01/02/17 07:12 Hamilton % (Auto) 3.8 % (0.0-10.0) 01/02/17 07:12 Eos % (Auto) 0.0 % (0.0-4.0) 01/02/17 07:12 Baso % (Auto) 0.0 % (0.0-2.0) 01/02/17 07:12 Neut # 21.8 K/uL (1.8-7.0) H 01/02/17 07:12 Lymph # 1.2 K/uL (1.0-4.3) 01/02/17 07:12 Hamilton # 0.9 K/uL (0.0-0.8) H 01/02/17 07:12 Eos # 0.0 K/uL (0.0-0.7) 01/02/17 07:12 Baso # 0.0 K/uL (0.0-0.2) 01/02/17 07:12 Neutrophils % (Manual) 90 % (50-75) H 01/02/17 07:12 Band Neutrophils % 2 % (0-2) 01/02/17 07:12 Lymphocytes % (Manual) 4 % (20-40) L 01/02/17 07:12 Reactive Lymphs % 1 % (0-0) H 01/01/17 06:48 Monocytes % (Manual) 4 % (0-10) 01/02/17 07:12 Toxic Granulation Present 01/02/17 07:12 Platelet Estimate Normal (NORMAL) 01/02/17 07:12 Large Platelets Present 01/02/17 07:12 Hypochromasia (manual) Slight 01/02/17 07:12 Basophilic Stippling Slight 01/02/17 07:12 Ovalocytes Slight 01/01/17 06:48 Retic Count 1.2 % (0.5-1.5) 01/02/17 07:12 PT 11.5 SECONDS (9.7-12.2) 01/01/17 01:27 INR 1.0 01/01/17 01:27 APTT 33 SECONDS (21-34) 01/01/17 01:27 Puncture Site By rn 01/01/17 01:20 pCO2 34 mm/Hg (35-45) L 01/01/17 01:20 pO2 47 mm/Hg (80-100) L 01/01/17 01:20 HCO3 22.2 mmol/L (21-28) 01/01/17 01:20 ABG pH 7.40 (7.35-7.45) 01/01/17 01:20 ABG Total CO2 22.1 mmol/L (22-28) 01/01/17 01:20 ABG O2 Saturation 85.7 % (95-98) L 01/01/17 01:20 ABG Base Excess -3.0 mmol/L (-2.0-3.0) L 01/01/17 01:20 Edinson Test Na 01/01/17 01:20 ABG Potassium 1.9 mmol/L (3.6-5.2) L* 01/01/17 01:20 A-a O2 Difference 60.0 mm/Hg 01/01/17 01:20 Respiratory Index 1.3 01/01/17 01:20 Sodium 143.0 mmol/l (132-148) 01/01/17 01:20 Chloride 119.0 mmol/L (98-107) H 01/01/17 01:20 Glucose 117 mg/dl (65-105) H 01/01/17 01:20 Lactate 1.0 mmol/L (0.7-2.1) 01/01/17 01:20 FiO2 21.0 % 01/01/17 01:20 Crit Value Called To Katelyn felipe/luis 01/01/17 01:20 Crit Value Called By Jaime najera 01/01/17 01:20 Crit Value Read Back Y 01/01/17 01:20 Blood Gas Notified Time 135 01/01/17 01:20 Sodium 135 mmol/L (132-148) 01/02/17 07:12 Potassium 4.0 mmol/L (3.6-5.2) 01/02/17 07:12 Chloride 93 mmol/L (98-107) L 01/02/17 07:12 Carbon Dioxide 30 mmol/L (22-30) 01/02/17 07:12 Anion Gap 16 (10-20) 01/02/17 07:12 BUN 34 mg/dL (7-17) H 01/02/17 07:12 Creatinine 0.9 MG/DL (0.7-1.2) 01/02/17 07:12 Est GFR ( Amer) > 60 01/02/17 07:12 Est GFR (Non-Af Amer) > 60 01/02/17 07:12 POC Glucose (mg/dL) 281 mg/dL (65-110) H 01/03/17 17:20 Random Glucose 220 mg/dL (65-105) H 01/02/17 07:12 Hemoglobin A1c 6.1 % (4.2-6.5) 01/01/17 06:48 Calcium 9.2 mg/dl (8.6-10.4) 01/02/17 07:12 Phosphorus 3.9 mg/dL (2.5-4.5) 01/02/17 07:12 Magnesium 2.2 mg/dL (1.6-2.3) 01/02/17 07:12 Iron 30 ug/dL (37-170) L 01/01/17 10:21 TIBC 397 ug/dL (250-450) 01/01/17 10:21 % Saturation 8 (20-55) L 01/01/17 10:21 Transferrin 334.59 mg/dL (206-381) 01/01/17 10:31 Ferritin 27.7 ng/mL 01/01/17 06:48 Total Bilirubin 0.4 mg/dL (0.2-1.3) 01/02/17 07:12 AST 24 U/L (14-36) 01/02/17 07:12 ALT 18 U/L (9-52) 01/02/17 07:12 Alkaline Phosphatase 81 U/L (38-126) 01/02/17 07:12 Total Creatine Kinase 168 U/L (30-135) H 01/01/17 15:04 CK-MB (Mass) 1.91 ng/mL (0.0-3.38) 01/01/17 15:04 Troponin I 0.0120 ng/mL (0.00-0.120) 01/01/17 01:27 Troponin I, Quant < 0.0120 ng/mL (0.00-0.120) 01/01/17 15:04 NT-Pro-B Natriuret Pep 221 pg/mL (0-900) 01/01/17 01:27 Total Protein 7.2 g/dL (6.3-8.3) 01/02/17 07:12 Albumin 4.2 g/dL (3.5-5.0) 01/02/17 07:12 Globulin 3.0 gm/dL (2.2-3.9) 01/02/17 07:12 Albumin/Globulin Ratio 1.4 (1.0-2.1) 01/02/17 07:12 Triglycerides 144 mg/dL (0-149) D 01/01/17 06:48 Cholesterol 192 mg/dL (0-199) 01/01/17 06:48 LDL Cholesterol Direct 97 mg/dL (0-129) 01/01/17 06:48 HDL Cholesterol 60 mg/dL (30-70) 01/01/17 06:48 Procalcitonin 0.09 NG/ML (0.19-0.49) L 01/01/17 10:21 TSH 3rd Generation 0.59 mIU/L (0.46-4.68) 01/01/17 06:48 Arterial Blood Potassium 1.9 mmol/L (3.6-5.2) L* 01/01/17 01:20 Urine Color Yellow (YELLOW) 01/01/17 01:10 Urine Clarity Clear (Clear) 01/01/17 01:10 Urine pH 5.0 (5.0-8.0) 01/01/17 01:10 Ur Specific [place] 1.019 (1.003-1.030) 01/01/17 01:10 Urine Protein 2+ mg/dL (NEGATIVE) H 01/01/17 01:10 Urine Glucose (UA) Normal mg/dL (Normal) 01/01/17 01:10 Urine Ketones Negative mg/dL (NEGATIVE) 01/01/17 01:10 Urine Blood 1+ (NEGATIVE) H 01/01/17 01:10 Urine Nitrate Negative (NEGATIVE) 01/01/17 01:10 Urine Bilirubin Negative (NEGATIVE) 01/01/17 01:10 Urine Urobilinogen Normal mg/dL (0.2-1.0) 01/01/17 01:10 Ur Leukocyte Esterase Neg Alice/uL (Negative) 01/01/17 01:10 Urine WBC (Auto) 1 /hpf (0-5) 01/01/17 01:10 Urine RBC (Auto) 9 /hpf (0-3) H 01/01/17 01:10 Ur Squamous Epith Cells 2 /hpf (0-5) 01/01/17 01:10 Stool Occult Blood Negative (NEGATIVE) 01/02/17 20:42 Influenza Typ A,B (EIA) Negative for flu a/b (NEGATIVE) 01/01/17 20:30 Ur L.pneumophila Ag Negative (NEGATIVE) 01/02/17 20:44 Mycoplasma pneumon IgM Negative (NEGATIVE) 01/02/17 07:12 Ur Strep pneumoniae Ag Not detected (()) 01/01/17 08:06 Attending/Attestation - Attestation I have personally seen and examined this patient.: Yes I have fully participated in the care of the patient.: Yes I have reviewed all pertinent clinical information, including history, physical exam and plan: Yes
[2017-01-03 15:57] VITALS: BP 151/72; PULSE 91; TEMP 98
[2017-01-04] MEDS ORDERED: Pneumococcal 23-Valent Vaccine IM ONE (10:00)
--- NOTE | 2017-01-05 09:23 | CARD ---
APPROVED REPORT EKG Measurement Heart Ujol041ESHE VT [id number] <Conclusion> Normal sinus rhythm ST depression, consider subendocardial injury Nonspecific T wave abnormality Prolonged QT Abnormal ECG
== END 2017-01-03 19:10 | disposition home or self-care (01) | DRG 192 ==
LOC: SUPCPDRO 00:52 → C.ER 00:52 → C.3T 03:07 → C.6T 19:48 → C.5T 01-02 11:38
PROVIDERS: ADMIT Internal Medicine; ATTEND Internal Medicine
DX: J44.1 Chronic obstructive pulmonary disease with (acute) exacerbation (principal); Z99.81 Dependence on supplemental oxygen; E11.9 Type 2 diabetes mellitus without complications; D64.9 Anemia, unspecified; I10 Essential (primary) hypertension; F41.9 Anxiety disorder, unspecified; M19.90 Unspecified osteoarthritis, unspecified site; E78.00 Pure hypercholesterolemia, unspecified; Z90.49 Acquired absence of other specified parts of digestive tract; Z87.891 Personal history of nicotine dependence; I25.10 Atherosclerotic heart disease of native coronary artery without angina pectoris; Z79.4 Long term (current) use of insulin